=== PATIENT | female | born 1970 | race African-American/Black ===

== ENCOUNTER 2017-01-15 08:45 | Inpatient (IN) | payer MEDICAID ==
[2017-01-15] VITALS (14 sets, daily range): BP systolic 139–200; BP diastolic 64–112; PULSE 62–82; RESP 16–19; TEMP 97.8–98.5; O2SAT 96–100
[~2017-01-15] VITALS: Ht 177.8 cm; Wt 95.5 kg
[~2017-01-15 08:45] MED LIST: ACET325S8 PO
[2017-01-15] MEDS ORDERED: ADVA100A INH (09:09)
[2017-01-15] MEDS ORDERED: LISI-519 PO (09:09)
[2017-01-15] MEDS ORDERED: ASPIRIN 81 MG CHEW TAB PO ONE (09:15)
[2017-01-15] MEDS ORDERED: SODIUM CHLORIDE 0.9% FLUSH 10 ML FLUSH IVF PRN (09:15)
[2017-01-15] MEDS ORDERED: SODIUM CHLORID 0.9% 500 ML INJ 500 ML IV ONE (09:15)
--- NOTE | 2017-01-15 09:22 | PD ---
HPI Chief Complaint: Chest Pain Time Seen by Provider: 09:07 Travel History International Travel<30 days: No Contact w/Intl Traveler<30days: No Traveled to known affect area: No History of Present Illness HPI Patient is a 46-year-old female history of hypertension, presents to emergency room complaints of chest pain. Reports that she is ago, she woke up with pains or chest. Reports that she feels a squeezing sensation to her substernum. Patient reports the symptoms feel better when she sits up, reports that symptoms are worse when she lies and flat. Reports that when she does have these symptoms, she does have diaphoresis, shortness of breath. Patient reports that symptoms will last for hours and then completely resolve on its own. Reports no history of coronary artery disease, [place], coronary artery stents. Patient does not follow up with a crester. Patient denies any recent illnesses, reports that she did recently travel to [place] for vacation. Reports that she is a nonsmoker, she does exercise daily and rides about 10 miles on her bike every several day. Patient denies any drug abuse, or alcohol abuse. PFSH Past Medical History Asthma: Yes Diminished Hearing: No Hypertension: Yes ?: Not LMP: currently on it Tubal Ligation: Yes Past Surgical History Surgical History: No Previous Surgery Social History Alcohol Use: No Tobacco Use: No Substance Use: No Allergies-Medications (Allergen,Severity, Reaction): Coded Allergies: No Known Allergies (Unverified , 12/30/15) Reported Meds & Prescriptions Reported Meds & Active Scripts Active Reported Ventolin Hfa 18 GM Inh (Albuterol Sulfate) 90 Mcg/Act Aer 2 Puff INH Q4H PRN Lisinopril-Hctz 10-12.5 Mg Tab 1 Tab PO DAILY Advair Diskus Inh (Fluticasone-Salmeterol Inh) 100-50 Mcg/Blist Aer 1 Puff INH BID Rinse mouth after use. Review of Systems General / Constitutional: No: Fever Eyes: No: Visual changes HENT: No: Headaches Cardiovascular: Positive: Chest Pain or Discomfort Respiratory: Positive: Shortness of Breath Gastrointestinal: No: Abdominal Pain Genitourinary: No: Dysuria Musculoskeletal: No: Pain Skin: No Rash Neurologic: No: Weakness Psychiatric: No: Depression Endocrine: No: Polydipsia Hematologic/Lymphatic: No: Easy Bruising Physical Exam Narrative GENERAL: Mild distress SKIN: Focused skin assessment warm/dry. HEAD: Atraumatic. Normocephalic. EYES: Pupils equal and round. No scleral icterus. No injection or drainage. ENT: No nasal bleeding or discharge. Mucous membranes pink and moist. NECK: Trachea midline. No JVD. CARDIOVASCULAR: Regular rate and rhythm. No murmur appreciated. RESPIRATORY: No accessory muscle use. Clear to auscultation. Breath sounds equal bilaterally. GASTROINTESTINAL: Abdomen soft, non-tender, nondistended. Hepatic and splenic margins not palpable. MUSCULOSKELETAL: No obvious deformities. No clubbing. No cyanosis. No edema. NEUROLOGICAL: Awake and alert. No obvious cranial nerve deficits. Motor grossly within normal limits. Normal speech. PSYCHIATRIC: Appropriate mood and affect; insight and judgment normal. Data Data Last Documented VS Vital Signs Date Time Temp Pulse Resp B/P Pulse Ox O2 Delivery O2 Flow Rate FiO2 01/15/17 13:00 82 18 190/98 98 Room Air 01/15/17 08:48 98.4 Orders Electrocardiogram (01/15/17 ) Basic Metabolic Panel (Bmp) (01/15/17 09:15) B-Type Natriuretic Peptide (01/15/17 09:15) Ckmb (Isoenzyme) Profile (01/15/17 09:15) Complete Blood Count With Diff (01/15/17 09:15) D-Dimer (01/15/17 09:15) Magnesium (Mg) (01/15/17 09:15) Prothrombin Time / Inr (Pt) (01/15/17 09:15) Act Partial Throm Time (Ptt) (01/15/17 09:15) Troponin I (01/15/17 09:15) Lipase (01/15/17 09:15) Chest, Single Ap (01/15/17 09:15) Ecg Monitoring (01/15/17 09:15) Iv Access Insert/Monitor (01/15/17 09:15) Oximetry (01/15/17 09:15) Aspirin Chew (Aspirin Chew) (01/15/17 09:15) Sodium Chloride 0.9% Flush (Ns Flush) (01/15/17 09:15) Nitroglycerin Sl (Nitrostat Sl) (01/15/17 09:15) Sodium Chlorid 0.9% 500 Ml Inj (Ns 500 M (01/15/17 09:15) Ct Pulmonary Angiogram (01/15/17 10:28) CKMB (01/15/17 09:30) CKMB% (01/15/17 09:30) Vascular Access Team Consult/P PRN (01/15/17 10:32) Vascular Poc Ultrasound (01/15/17 ) Heparin Infusion SHAHRAM.Q1H (01/15/17 10:35) Heparin-D5w Inj (Heparin-D5w Inj) (01/15/17 10:45) Nitroglycerin-Dextrose Inj (Nitroglyceri (01/15/17 10:45) (Hub Use Only)Inp Phy Cons/Ref (01/15/17 ) Ckmb (Isoenzyme) Profile (01/15/17 12:21) Troponin I (01/15/17 12:21) Iohexol 350 Inj (Omnipaque 350 Inj) (01/15/17 12:48) CKMB (01/15/17 12:22) CKMB% (01/15/17 12:22) Consult Cardiology (01/15/17 ) Electrocardiogram (01/15/17 ) Labs Laboratory Tests Test 01/15/17 01/15/17 09:30 12:22 White Blood Count 4.2 TH/MM3 Red Blood Count 4.87 MIL/MM3 Hemoglobin 11.2 GM/DL Hematocrit 34.9 % Mean Corpuscular Volume 71.7 FL Mean Corpuscular Hemoglobin 23.0 PG Mean Corpuscular Hemoglobin 32.1 % Concent Red Cell Distribution Width 17.0 % Platelet Count 272 TH/MM3 Mean Platelet Volume 8.6 FL Neutrophils (%) (Auto) 52.1 % Lymphocytes (%) (Auto) 34.5 % Monocytes (%) (Auto) 8.9 % Eosinophils (%) (Auto) 3.5 % Basophils (%) (Auto) 1.0 % Neutrophils # (Auto) 2.2 TH/MM3 Lymphocytes # (Auto) 1.4 TH/MM3 Monocytes # (Auto) 0.4 TH/MM3 Eosinophils # (Auto) 0.1 TH/MM3 Basophils # (Auto) 0.0 TH/MM3 CBC Comment DIFF FINAL Differential Comment Prothrombin Time 11.4 SEC Prothromb Time International 1.0 RATIO Ratio Activated Partial 23.3 SEC Thromboplast Time D-Dimer Quantitative (PE/DVT) 1.13 MG/L FEU Sodium Level 136 MEQ/L Potassium Level 3.9 MEQ/L Chloride Level 105 MEQ/L Carbon Dioxide Level 24.5 MEQ/L Anion Gap 7 MEQ/L Blood Urea Nitrogen 4 MG/DL Creatinine 0.72 MG/DL Estimat Glomerular Filtration 106 ML/MIN Rate Random Glucose 102 MG/DL Calcium Level 8.4 MG/DL Magnesium Level 1.8 MG/DL Total Creatine Kinase 156 U/L 142 U/L Creatine Kinase MB 9.1 NG/ML 8.2 NG/ML Troponin I 5.09 NG/ML 6.02 NG/ML B-Type Natriuretic Peptide 105 PG/ML Lipase 135 U/L [facility] Medical Decision Making Medical Screen Exam Complete: Yes Emergency Medical Condition: Yes Medical Record Reviewed: Yes Interpretation(s) EKG at 912: NSR at 68bpm, qt/qtc: 435/452, nonspecific t wave changes Vital Signs Date Time Temp Pulse Resp B/P Pulse Ox O2 Delivery O2 Flow Rate FiO2 01/15/17 09:11 76 19 185/108 100 Room Air 01/15/17 08:51 75 16 194/102 01/15/17 08:48 98.4 78 18 189/112 99 Differential Diagnosis Differential includes ACS, arrhythmia, pericarditis, endocarditis, PE, electrolyte abnormality, pneumothorax Narrative Course Patient is a 46-year-old female who presents to emergency room with complaints of chest pain. She reports that chest pain has been intermittent for the past 2 days, pain is worse with laying down flat improved with sitting up. Patient reports a squeezing sensation to her mid sternum when she has her symptoms such diaphoresis and shortness of breath. She is never had these symptoms in the past. Reports Only medical history of hypertension as well as asthma. Patient was placed on a monitor technician upon arrival to the emergency room. EKG was obtained which shows no acute ST or T-wave changes. Lab work including cardiac enzymes, x-ray of the chest ordered. D-dimer ordered to rule out PE as patient is low risk for PE. Plan to administer sublingual nitroglycerin to see if this helps with her chest pain. Patient with near relief of chest pain after 3 SL nitro's - plan to start on nitro gtt trop 5.09 - will start heparin drip - will require admission for unstable angina CTA with no PE Will admit for unstable angina, patient with relief of chest pain with nitro gtt case reviewed with dr. chan, will see patient in consult case reviewed with dr. fry who accepts pt to service Critical Care Narrative Aggregate critical care time was 30 minutes. Time to perform other separately billable procedures was not included in the critical care time. My time did not include minutes spent treating any other patients simultaneously or on activities that did not directly contribute to the patient's treatment. The services I provided to this patient were to treat and/or prevent clinically significant deterioration that could result in: , decompensation, deterioration I provided critical care services requiring my management, as noted below: Chart data review, documentation time, medication orders and management, vital sign assessments/reviewing monitor data, ordering and reviewing lab tests, ordering and interpreting/reviewing x-rays and diagnostic studies, care of the patient and discussion of the patient with the admitting physicians. Diagnosis Primary Impression: Unstable angina Additional Impression: Non-ST elevation [place] (NSTEMI) Admitting Information Admitting Physician Requests: Paige Rea DO Jan 15, 2017 09:22
[2017-01-15] MEDS: NITROGLYCERIN 0.4 MG SL 25 TABS/BTL SL SCH ×3 (09:28→09:47)
--- NOTE | 2017-01-15 09:57 | RADRPT ---
EXAM DATE/TIME: 01/15/2017 09:17 [facility] COMPARISON: No previous studies available for comparison. INDICATIONS : Congestion and shortness of breath. MEDICAL HISTORY : Hypertension. Asthma SURGICAL HISTORY : None. ENCOUNTER: Initial ACUITY: 1 day PAIN SCORE: 0/10 LOCATION: Bilateral chest FINDINGS: A single view of the chest demonstrates the lungs to be symmetrically aerated without evidence of mas s, infiltrate or effusion. The cardiomediastinal contours are unremarkable. Osseous structures are intact with mild scoliosis. There are multiple overlying electrocardiogram leads. CONCLUSION: No acute disease. Chacorta Patel MD on January 15, 2017 at 9:55 Board Certified Radiologist. This report was verified electronically.
[2017-01-15 10:05] LABS: AUTOMATED NEUTROPHIL # 2.2 TH/MM3 (1.8-7.7); EOSINOPHIL # 0.1 TH/MM3 (0-0.4); EOSINOPHIL % 3.5 % (0.0-4.0); HEMATOCRIT 34.9 % (35.0-46.0); HEMO FLAGS DIFF FINAL; LYMPH % 34.5 % (9.0-44.0); LYMPHOCYTE # 1.4 TH/MM3 (1.0-4.8); MEAN CELL VOLUME 71.7 FL (80.0-100.0); MEAN CORPUSCULAR HGB CONC 32.1 % (32.0-36.0); MONO % 8.9 % (0.0-8.0); NEUT % 52.1 % (16.0-70.0); PLATELET COUNT 272 TH/MM3 (150-450); RED BLOOD COUNT 4.87 MIL/MM3 (4.00-5.30); WHITE BLOOD COUNT 4.2 TH/MM3 (4.0-11.0)
[2017-01-15 10:21] LABS: APTT (PATIENT) 23.3 SEC (24.3-30.1); PROTHROMBIN TIME - PATIENT 11.4 SEC (9.8-11.6)
[2017-01-15 10:29] LABS: ANION GAP 7 MEQ/L (5-15); BICARBONATE 24.5 MEQ/L (21.0-32.0); BLOOD UREA NITROGEN 4 MG/DL (7-18); CHLORIDE 105 MEQ/L (98-107); CREATINE KINASE 156 U/L (26-192); GLOMERULAR FILTRATION RATE 106 ML/MIN (>89); MAGNESIUM 1.8 MG/DL (1.5-2.5); POTASSIUM 3.9 MEQ/L (3.5-5.1); SODIUM (NA) 136 MEQ/L (136-145)
[2017-01-15 10:44] LABS: CKMB 9.1 NG/ML (0.5-3.6)
[2017-01-15] MEDS ORDERED: HEPARIN-D5W 25,000 U/250 ML 250 ML IV SCH (10:45)
[2017-01-15] MEDS ORDERED: NITROGLYCERIN-D5W 50 MG/250 ML 250 ML IV SCH (10:45)
[2017-01-15] MEDS ORDERED: VENTAER INH (11:00)
[2017-01-15] MEDS ORDERED: LISI10TA PO (11:00)
[2017-01-15] MEDS ORDERED: IOHEXOL 350 MG/ML 10 ML VIAL (for RAD DIAG) IV ONE (12:48)
--- NOTE | 2017-01-15 13:23 | RADRPT ---
EXAM DATE/TIME: 01/15/2017 12:45 [facility] COMPARISON: No previous studies available for comparison. INDICATIONS : Shortness of breath, chest pain and bilateral foot numbness for three days. IV CONTRAST: 60 cc Omnipaque 350 (iohexol) IV RADIATION DOSE: 23.14 CTDIvol (mGy) MEDICAL HISTORY : Hypertension. SURGICAL HISTORY : Tubal ligation. ENCOUNTER: Initial ACUITY: 3 days PAIN SCALE: 0/10 LOCATION: Bilateral chest TECHNIQUE: Volumetric scanning of the chest was performed using a pulmonary embolism protocol MIP images were re constructed. Using automated exposure control and adjustment of the mA and/or kV according to patien t size, radiation dose was kept as low as reasonably achievable to obtain optimal diagnostic quality images. DICOM format image data is available electronically for review and comparison. Follow-up recommendations for detected pulmonary nodules are based at a minimum on nodule size and pa tient risk factors according to Fleischner Society Guidelines. FINDINGS: There is no evidence of pulmonary embolism. The heart is enlarged. No pulmonary nodule or mass is noted. No alveolar or interstitial infiltrate is noted. No pleural effusion is n oted. A tiny pericardial effusion is noted. Bilateral axillary lymphadenopathy is noted and is nonspecific. Deg enerative changes and scoliosis of the thoracic spine are noted. There is a 1.5 cm low density lesion within the left lobe of the liver which is indeterminate. MRI of the abdomen with contrast may be helpful for further evalu ation of this finding if clinically indicated. CONCLUSION: 1. No evidence of pulmonary embolism. 2. Cardiomegaly. 3. Tiny pericardial effusion. 4. Bilateral axillary lymphadenopathy which is nonspecific. 5. 15 mm low density lesion within the left lobe of the liver which is indeterminate. MRI of the abd omen with contrast may be helpful for further evaluation of this finding and could be performed as an outpatient if clinically indicated. Rasta Staley MD on January 15, 2017 at 12:59 Board Certified Radiologist. This report was verified electronically.
[2017-01-15 13:26] LABS: CREATINE KINASE 142 U/L (26-192)
[2017-01-15 13:41] LABS: CKMB 8.2 NG/ML (0.5-3.6)
--- NOTE | 2017-01-15 14:08 | HHI.HP ---
[facility] Service [place] [facility] Primary Care Physician Emmanuel Luong Admission Diagnosis Unstable Angina Diagnoses: (1) Non-ST elevation [place] (NSTEMI) Diagnosis: Principal Chief Complaint: chest pain Travel History International Travel<30 Days: No Contact w/Intl Traveler <30 Da: No Traveled to Known Affected Are: No History of Present Illness patient is a 46 y/o female with history of hypertension who presented to ER with chest pain. she says that she rides her bicycle a few mild a day. she says that she started to have some sob a few days ago when she was riding her bicycle.she says that last night when she went to sleep she started to have midsternal pressure-type chest discomfort with some radiation to both arms. pain last till this morning. pain was associated with some sob but with no nausea,emesis. she had some diaphoresis last night. the pain was relieved after she was placed on Nitro drip. she doesn't recall any chest pain in the past. Review of Systems Constitutional: COMPLAINS OF: Diaphoretic episodes, DENIES: Fever, Weight loss , Chills, Night Sweats Eyes: DENIES: Blurred vision, Diplopia, Vision loss, Double Vision Ears, nose, mouth, throat: DENIES: Tinnitus, Vertigo, Throat pain, Epistaxis Respiratory: COMPLAINS OF: Shortness of breath, DENIES: Apneas, Cough, Snoring , Wheezing, Hemoptysis, Sputum production Cardiovascular: COMPLAINS OF: Chest pain, Dyspnea on Exertion, DENIES: Palpitations, Syncope, PND, Lower Extremity Edema, Orthopnea, Claudication Gastrointestinal: DENIES: Abdominal pain, Black stools, Bloody stools, Constipation, Diarrhea, Nausea, Vomiting, Difficulty Swallowing, Anorexia Genitourinary: DENIES: Urinary frequency, Urgency, Hematuria, Dysuria Musculoskeletal: DENIES: Joint pain, Muscle aches, Stiffness, Joint Swelling Integumentary: DENIES: Rash Neurologic: DENIES: Abnormal gait, Headache, Localized weakness, Paresthesias, Seizures, Speech Problems, Tremor, Poor Balance Psychiatric: DENIES: Anxiety, Confusion, Mood changes, Depression, Hallucinations, Agitation, Suicidal Ideation, Homicidal Ideation, Delusions Past Family Social History Past Medical History hypertension asthma Past Surgical History tubal ligation. Reported Medications Ventolin Hfa 18 GM Inh (Albuterol Sulfate) 90 Mcg/Act Aer 2 Puff INH Q4H PRN Lisinopril-Hctz 10-12.5 Mg Tab 1 Tab PO DAILY Advair Diskus Inh (Fluticasone-Salmeterol Inh) 100-50 Mcg/Blist Aer 1 Puff INH BID Rinse mouth after use. Allergies: Coded Allergies: No Known Allergies (Unverified , 12/30/15) Active Ordered Medications Current Medications Aspirin (Aspirin Chew) 162 mg ONCE ONCE PO Last administered on 01/15/17 09: 27; Start 01/15/17 at 09:15; Stop 01/15/17 at 09:17; Status DC Sodium Chloride (NS Flush) 2 ml UNSCH PRN IVF FLUSH AFTER USING IV ACCESS; Start 01/15/17 at 09:15 Nitroglycerin 0.4 mg 0.4 mg Q5M SL Last administered on 01/15/17 09:47; Start 01/15/17 at 09:15; Stop 01/15/17 at 09:26; Status DC Sodium Chloride 500 ml @ 500 mls/hr ONCE ONCE IV Last administered on 09:29; Start 01/15/17 at 09:15; Stop 01/15/17 at 10:14; Status DC Heparin Sodium/ Dextrose 250 ml @ 0 mls/hr TITRATE IV Last administered on 01/15 10:58; Start 01/15/17 at 10:45 Nitroglycerin/ Dextrose (Nitroglycerin-Dextrose Inj) 250 ml @ 0 mls/hr TITRATE IV Last administered on 01/15/17 10:57; Start 01/15/17 at 10:45 Iohexol (Omnipaque 350 Inj) 60 ml STK-MED ONCE IV Last administered on 12:48; Start 01/15/17 at 12:48; Stop 01/15/17 at 12:49; Status DC Family History not known. Social History no smoking, drinking or illicit drug abuse. Physical Exam Vital Signs Vital Signs Date Time Temp Pulse Resp B/P Pulse Ox O2 Delivery O2 Flow Rate FiO2 01/15/17 13:00 82 18 190/98 98 Room Air 01/15/17 12:00 80 17 200/95 99 Room Air 01/15/17 11:00 77 18 196/105 100 Room Air 01/15/17 10:01 14 01/15/17 10:00 75 17 187/107 100 Room Air 01/15/17 09:34 82 19 168/100 99 Room Air 01/15/17 09:29 100 Room Air 01/15/17 09:11 76 19 185/108 100 Room Air 01/15/17 08:51 75 16 194/102 01/15/17 08:48 98.4 78 18 189/112 99 Physical Exam GENERAL: This is a well-nourished, well-developed patient, in no apparent distress. SKIN: No rashes, ecchymoses or lesions. Cool and dry. HEAD: Atraumatic. Normocephalic. No temporal or scalp tenderness. EYES: Pupils equal round and reactive. Extraocular motions intact. No scleral icterus. No injection or drainage. ENT: Nose without bleeding, purulent drainage or septal hematoma. Throat without erythema, tonsillar hypertrophy or exudate. Uvula midline. Airway patent. NECK: Trachea midline. No JVD or lymphadenopathy. Supple, nontender, no meningeal signs. CARDIOVASCULAR: Regular rate and rhythm without murmurs, gallops, or rubs. RESPIRATORY: Clear to auscultation. Breath sounds equal bilaterally. No wheezes , rales, or rhonchi. GASTROINTESTINAL: Abdomen soft, non-tender, nondistended. No hepato-splenomegaly , or palpable masses. No guarding. MUSCULOSKELETAL: Extremities without clubbing, cyanosis, or edema. No joint tenderness, effusion, or edema noted. No calf tenderness. Negative Homans sign bilaterally. NEUROLOGICAL: Awake and alert. Cranial nerves II through XII intact. Motor and sensory grossly within normal limits. Five out of 5 muscle strength in all muscle groups. Normal speech. Laboratory Laboratory Tests Test 01/15/17 01/15/17 09:30 12:22 White Blood Count 4.2 Red Blood Count 4.87 Hemoglobin 11.2 Hematocrit 34.9 Mean Corpuscular Volume 71.7 Mean Corpuscular Hemoglobin 23.0 Mean Corpuscular Hemoglobin 32.1 Concent Red Cell Distribution Width 17.0 Platelet Count 272 Mean Platelet Volume 8.6 Neutrophils (%) (Auto) 52.1 Lymphocytes (%) (Auto) 34.5 Monocytes (%) (Auto) 8.9 Eosinophils (%) (Auto) 3.5 Basophils (%) (Auto) 1.0 Neutrophils # (Auto) 2.2 Lymphocytes # (Auto) 1.4 Monocytes # (Auto) 0.4 Eosinophils # (Auto) 0.1 Basophils # (Auto) 0.0 CBC Comment DIFF FINAL Differential Comment Prothrombin Time 11.4 Prothromb Time International 1.0 Ratio Activated Partial 23.3 Thromboplast Time D-Dimer Quantitative (PE/DVT) 1.13 Sodium Level 136 Potassium Level 3.9 Chloride Level 105 Carbon Dioxide Level 24.5 Anion Gap 7 Blood Urea Nitrogen 4 Creatinine 0.72 Estimat Glomerular Filtration 106 Rate Random Glucose 102 Calcium Level 8.4 Magnesium Level 1.8 Total Creatine Kinase 156 142 Creatine Kinase MB 9.1 8.2 Troponin I 5.09 6.02 B-Type Natriuretic Peptide 105 Lipase 135 Result Diagram: 01/15/1792901/15/17929 Imaging Last Impressions Chest X-Ray 01/15/17914 Signed Impressions: Service Date/Time: December 09:17 - CONCLUSION: No acute disease. Chacorta Patel MD EKG; sinus rhythm with no acute ST-T changes. Assessment and Plan Assessment and Plan A/P - NSTEMI received a dose of aspirin in ER- continue with Heparin and Nitro drip- continue to trend the cardiac enzymes- cardiology consulted. -hypertensive urgency; started on Nitro drip- will monitor the BP. -asthma with no exacerbation; resume advair and albuterol -liver lesion- f/u as outpatient. -DVT prophylaxis; on Heparin drip Discussed Condition With ER physician and the patient. Physician Certification 2 Midnight Certification Type: Admission for Inpatient Services Order for Inpatient Services The services are ordered in accordance with Medicare regulations or non- Medicare payer requirements, as applicable. In the case of services not specified as inpatient-only, they are appropriately provided as inpatient services in accordance with the 2-midnight benchmark. Estimated LOS (days): 2 days is the estimated time the patient will need to remain in the hospital, assuming treatment plan goals are met and no additional complications. Post-Hospital Plan: Home Deirdre Vivar MD Jan 15, 2017 14:08
--- NOTE | 2017-01-15 14:53 | PD.CONS ---
HPI Consult Requested By Primary Care Physician Emmanuel Luong History of Present Illness 46 y/o female with history of hypertension who presented to ER with chest pain. she says that she rides her bicycle a few mild a day. she says that she started to have some sob a few days ago when she was riding her bicycle.she says that last night when she went to sleep she started to have midsternal pressure-type chest discomfort with some radiation to both arms. pain last till this morning. pain was associated with some sob but with no nausea,emesis. she had some diaphoresis last night. the pain was relieved after she was placed on Nitro drip. she doesn't recall any chest pain in the past. Review of Systems Consitutional: DENIES: Fatigue, Fever, Chills, Weight gain, Weight loss Eyes: DENIES: Amaurosis Fugax, Change in vision HEENT: DENIES: Lightheadedness, Change in hearing Respiratory: DENIES: See HPI, Cough, Snoring, Shortness of breath, Wheezing, Sputum production Cardiovascular: COMPLAINS OF: See HPI Gastrointestinal: DENIES: Nausea, Vomiting, Change in bowel habits, Reflux, Bloody stools, Melena Genitourinary: DENIES: Urinary incontinence, Difficulty voiding Integumentary: DENIES: Rash Neurologic: DENIES: Tingling or numbness, Memory problems, Poor Balance, Stroke symptoms Musculoskeletal: DENIES: Joint pain, Muscle pain, Limited range of motion, Back pain Psychiatric: DENIES: Anxiety, Depression, Sleep disturbances Hematologic: DENIES: Bruising tendencies, Bleeding tendencies Endocrine: DENIES: Weight gain, Weight loss, Thyroid disease Past Family Social History Allergies: Coded Allergies: No Known Allergies (Unverified , 12/30/15) Past Medical History hypertension asthma Past Surgical History tubal ligation. Reported Medications Reported Meds & Active Scripts Active Reported Ventolin Hfa 18 GM Inh (Albuterol Sulfate) 90 Mcg/Act Aer 2 Puff INH Q4H PRN Lisinopril-Hctz 10-12.5 Mg Tab 1 Tab PO DAILY Advair Diskus Inh (Fluticasone-Salmeterol Inh) 100-50 Mcg/Blist Aer 1 Puff INH BID Rinse mouth after use. Active Ordered Medications Current Medications Medications (Trade) Dose Ordered Sig/Mulu Route Start Time Stop Time Status Last Admin Sodium Chloride 2 ml 2 ml UNSCH PRN IVF 01/15/17 09:15 Heparin Sodium/ Dextrose 250 ml @ 0 mls/hr TITRATE IV 01/15/17 10:45 01/15/17 10:58 (Nitroglycerin-Dextrose Inj) 250 ml @ 0 mls/hr TITRATE IV 01/15/17 10:45 01/15/17 10:57 (Proair Hfa Inh) 2 puff Q4H PRN INH 01/15/17 14:00 UNV Non-Formulary Medication 1 puff 1 puff BID INH 01/15/17 21:00 UNV (NS 1000 ml Inj) 1,000 ml @ 84 mls/hr [id number] IV 01/15/17 14:00 UNV Physical Exam Vital Signs Vital Signs Date Time Temp Pulse Resp B/P Pulse Ox O2 Delivery O2 Flow Rate FiO2 01/15/17 13:00 82 18 190/98 98 Room Air 01/15/17 12:00 80 17 200/95 99 Room Air 01/15/17 11:00 77 18 196/105 100 Room Air 01/15/17 10:01 14 01/15/17 10:00 75 17 187/107 100 Room Air 01/15/17 09:34 82 19 168/100 99 Room Air 01/15/17 09:29 100 Room Air 01/15/17 09:11 76 19 185/108 100 Room Air 01/15/17 08:51 75 16 194/102 01/15/17 08:48 98.4 78 18 189/112 99 Physical Exam GENERAL: Well-nourished, well-developed patient. SKIN: Warm and dry. HEAD: Normocephalic. EYES: No scleral icterus. No injection or drainage. NECK: Supple, trachea midline. No JVD or lymphadenopathy. CARDIOVASCULAR: Regular rate and rhythm without murmurs, gallops, or rubs. RESPIRATORY: Breath sounds equal bilaterally. No accessory muscle use. GASTROINTESTINAL: Abdomen soft, non-tender, nondistended. EXTREMITIES: No cyanosis, or edema. NEUROLOGICAL: Awake, alert, and oriented x 3. Non-focal. Laboratory Laboratory Tests Test 01/15/17 01/15/17 09:30 12:22 White Blood Count 4.2 Red Blood Count 4.87 Hemoglobin 11.2 Hematocrit 34.9 Mean Corpuscular Volume 71.7 Mean Corpuscular Hemoglobin 23.0 Mean Corpuscular Hemoglobin 32.1 Concent Red Cell Distribution Width 17.0 Platelet Count 272 Mean Platelet Volume 8.6 Neutrophils (%) (Auto) 52.1 Lymphocytes (%) (Auto) 34.5 Monocytes (%) (Auto) 8.9 Eosinophils (%) (Auto) 3.5 Basophils (%) (Auto) 1.0 Neutrophils # (Auto) 2.2 Lymphocytes # (Auto) 1.4 Monocytes # (Auto) 0.4 Eosinophils # (Auto) 0.1 Basophils # (Auto) 0.0 CBC Comment DIFF FINAL Differential Comment Prothrombin Time 11.4 Prothromb Time International 1.0 Ratio Activated Partial 23.3 Thromboplast Time D-Dimer Quantitative (PE/DVT) 1.13 Sodium Level 136 Potassium Level 3.9 Chloride Level 105 Carbon Dioxide Level 24.5 Anion Gap 7 Blood Urea Nitrogen 4 Creatinine 0.72 Estimat Glomerular Filtration 106 Rate Random Glucose 102 Calcium Level 8.4 Magnesium Level 1.8 Total Creatine Kinase 156 142 Creatine Kinase MB 9.1 8.2 Troponin I 5.09 6.02 B-Type Natriuretic Peptide 105 Lipase 135 Result Diagram: 01/15/17 0930 01/15/17 [address] Angiography 01/15/17 1028 Signed Impressions: Service Date/Time: December 12:45 - CONCLUSION: 1. No evidence of pulmonary embolism. 2. Cardiomegaly. 3. Tiny pericardial effusion. 4. Bilateral axillary lymphadenopathy which is nonspecific. 5. 15 mm low density lesion within the left lobe of the liver which is indeterminate. MRI of the abdomen with contrast may be helpful for further evaluation of this finding and could be performed as an outpatient if clinically indicated. Rasta Staley MD Chest X-Ray 01/15/17 0915 Signed Impressions: Service Date/Time: December 09:17 - CONCLUSION: No acute disease. Chacorta Patel MD Assessment and Plan Problem List: (1) Non-ST elevation NH (NSTEMI) Assessment and Plan: 46 y/o F with presents with chest pain and + cardiac markers consistent with NSTEMI. Cardiac risk factors with HTN. Afebrile and hemodynamically stable. Recommendations: [facility] today Heparin drip BB ACEi Nitrates 2Dechocardiogram Risk benefits of LHC possible PCI has including but not limited to neurovascular trauma, infection, bleeding, acute kidney injury, CVA, emergent CABG have been explain to the patient. Patient understands risk and is willing to proceed. (2) Unstable angina Vasiliy Charles MD Jan 15, 2017 14:53
[2017-01-15] MEDS ORDERED: ALBUTEROL SULFATE 90 MCG/ACT HFA 18 GM INHALER INH PRN (15:15)
[2017-01-15] MEDS ORDERED: HEPARIN-NS/PF INJ 500 ML ONE (15:26)
[2017-01-15] MEDS ORDERED: MIDAZOLAM HCL 2 MG/2 ML VIAL ONE ×2 (15:26→16:02)
[2017-01-15 15:27] LABS: BETA HCG QUANT LESS THAN 1 MIU/ML (0-5)
[2017-01-15] MEDS ORDERED: LABETALOL HCL 100 MG/20 ML VIAL ONE (15:56)
[2017-01-15] MEDS ORDERED: IOHEXOL 350 MG/ML 50 ML BTL (for Cath Lab) OTHER ONE (16:13)
--- NOTE | 2017-01-15 16:41 | EKG ---
Date Performed: 01/15/2017 Time Performed: 09:13:48 PTAGE: 46 years EKG: Sinus rhythm POSSIBLE LEFT ATRIAL ENLARGEMENT POSSIBLE LEFT VENTRICULAR HYPERTROPHY NONSPECIFIC T-WAVE ABNORMALIT Y ABNORMAL ECG NO PREVIOUS TRACING DOCTOR: Ariel Garcia Interpretating Date/Time 01/15/2017 16:40:49
[2017-01-15] MEDS ORDERED: PROTAMINE SULFATE 50 MG/5 ML VIAL ONE (16:48)
--- NOTE | 2017-01-15 17:04 | CATHPROC ---
USDS HIS Report Study Information Study Number Admission Scheduled Start Study Start [id number] Jan 15 2017 1:47PM 01/15/2017 Jan 15 2017 3:23PM [facility] Service Cardiac Catheterization Admit Source Facility Department Emergency department [facility] - Critical Care Educator Physician and Clinical Staff Initial Vasiliy Blanton RN, Genesis Martinez RN Recorder Gino Sosa,RT(R) Scrub Xi Sands,RT(R) Procedures Performed Procedure Location (Site) Vessel Name Coronary Angiograms LCA Left Coronary Coronary Angiograms RCA Right Coronary L Heart Cath LV Gram-hand inj. LV LV Ventricle Equipment Time Supply Chain Procurement Manager Description Size Mfg Part Number Used/Scraped TRANSDUCER, TRUWAVE [id number] 15:44 [employer]OWN NICHOLS * Used W/STOCKCOCK *[id number] 16:14 [employer] VASCADE, FR5 CLOSURE SYSTEM FR 5 Used *[id number]- INTRODUCER SET, 15:44 [employer] FR 5 SC-NT-U-SST Used MICROPUNCTURE, STIFFENED *[id number] *[id number] [id number] *[id number] 15:44 [employer] INDUSTRIES PACK, CCL CUSTOM * Used *[id number] 15:44 [employer] WIRE, 3MMJ .035 180CM 180CM Used *[id number] 15:44 NAMIC MANIFOLD, 4 PORT * Used *[id number] 15:44 [employer] OMNIPAQUE, 350 MG, 150ML 150ML [id number] Used [id number] 15:44 [employer] BLANKET,WARM AIR CCL * Used *[id number] 15:44 TERUMO MEDICAL SHEATH, FR5 TERUMO (10CM) FR 5 Used *[id number] History: Allergies Allergy Reaction No Known Allergies History: Risk Factors Family History of Hypertension Dyslipidemia Previous PR Previous Heart Failure Premature CAD Yes No No No No Prior Valve Prior PCI Prior CABG Surgery No No No Cerebrovascular Peripheral Artery Chronic Lung On Dialysis Diabetes Disease Disease Disease No No No Yes No History: Stress Tests Stress or Imaging Studies Performed No History: Other Disease Selection Items HTN History: Other Current Smoker No Labs Hgb (g/dl) Hct (%) RBC (MIL/MM3) WBC (l/cumm) Platelets (thousands) 11.60-17.00 35.00-51.00 4.00-5.90 4.00-11.00 150.00-450.00 11.2 34.9 4.8 4.2 272 Glucose (mg/dl) BUN (mg/dl) Creatinine (mg/dl) BUN:Creatinine (1:x) 74.00-106.00 7.00-18.00 0.50-1.30 10.00-20.00 102 4 0.7 5.7 Na (meq/l) K (meq/l) Cl (meq/l) CO2 (mmol/L) Ca (mg/dl) 136.00-145.00 3.50-5.10 98.00-107.00 21.00-32.00 8.50-10.10 136 3.9 105 24.5 8.4 PT (sec) PTT (sec) INR (PTT:PT) 9.80-11.60 24.30-30.10 0.90-1.10 11.4 23.3 1 Troponin I (ng/ml) Troponin T (ng/ml) CPK-MB (ng/ML) 0.02-0.05 0.40-2.10 0.50-3.60 6.02 5.09 9.1 Medication Medication Total Dose (Bolus/Oral) Medication Total Dosage/Unit 1% XYLOCAINE 20 mL FENTANYL 100 mcg LABETOLOL 20 mg VERSED 4 mg Medications (Bolus/Oral) Medication Time Given Dosage/Unit Administered By Reason VERSED 01/15/2017 3:56:36 PM 2 mg Rickey Tinsley RN Patient arrived on 2 mg VERSED given by Rickey Tinsley RN in Left Antecubital via Peripheral IV. Ordere d by Vasiliy Charles. LABETOLOL 01/15/2017 3:57:52 PM 20 mg Rickey Tinsley RN Patient arrived on 20 mg LABETOLOL given by Rickey Tinsley RN in Left Antecubital via Peripheral IV. Or dered by Vasiliy Charles. FENTANYL 01/15/2017 3:59:45 PM 50 mcg Rickey Tinsley RN Patient arrived on 50 mcg FENTANYL given by Rickey Tinsley RN in Left Antecubital via Peripheral IV. Or dered by Vasiliy Charles. FENTANYL 01/15/2017 4:02:43 PM 50 mcg Rickey Tinsley RN 50 mcg FENTANYL given in lab by Rickey Tinsley RN via Peripheral IV. 1% XYLOCAINE 01/15/2017 4:03:24 PM 20 mL Vasiliy Charles 20 mL 1% XYLOCAINE given in lab by Vasiliy Charles in Right Groin via Subcutaneous. VERSED 01/15/2017 4:05:01 PM 2 mg Rickey Tinsley RN 2 mg VERSED given in lab by Rickey Tinsley RN via Peripheral IV. Medication (Drip) Medication Time Given Dosage/Unit Concentration/Unit Diluent (ml) Solution NITROGLYCERIN DRIP 01/15/2017 3:29:18 PM 20 mcg/min 50 mg 250 D5W Patient arrived on 20 mcg/min NITROGLYCERIN DRIP given by Vasiliy Charles in Left Forearm via Perip heral IV. Pump/Drip Flow = 6 ml/hr using D5W with a concentration of 50 mg in 250 ml. Ordered by Vasiliy Charles. NITROGLYCERIN DRIP 01/15/2017 3:50:28 PM 30 mcg/min 50 mg 250 D5W Patient arrived on 30 mcg/min NITROGLYCERIN DRIP given by Rickey Tinsley RN in Left Antecubital via Per ipheral IV. Pump/Drip Flow = 9 ml/hr using D5W with a concentration of 50 mg in 250 ml. Ordered by Vasiliy Charles. Initial Case Assessment Cardiovascular HR Rhythm NIBP Chest Pain 70 sr 202/120 0 Edema Present Skin color Skin None Normal Warm Dry Circulatory - Right Pulses Dorsalis Pedis Femoral 3 3 Scale (0,1,2,3,4,d) Circulatory - Left Pulses Dorsalis Pedis Femoral 3 3 Scale (0,1,2,3,4,d) Neurological State Oriented to time-place- Alert Moves all extremities person Respiration - General Respiration Rate SpO2 (%) O2 (lpm) (B/min) 18 98 0 Final Case Assessment Cardiovascular HR Rhythm NIBP Chest Pain 76 Sinus 158/95 0 Edema Present Skin color Skin None Normal Warm Dry Circulatory - Right Pulses Dorsalis Pedis Femoral 3 3 Scale (0,1,2,3,4,d) Circulatory - Left Pulses Dorsalis Pedis Femoral 3 3 Scale (0,1,2,3,4,d) Neurological State Oriented to time-place- Alert Moves all extremities person Respiration - General Respiration Rate SpO2 (%) O2 (lpm) (B/min) 13 97 2 Chronological Log Time Study Chronological Log 15:23:57 Patient arrived via Bed. 15:23:59 Patient Name, D.O.B, / Armband Verified By R.N. 15:24:49 Pre-op and post- op instructions given; patient acknowledges understanding of instructions. 15:25:14 Verbal Stimulation=2 Physical Stimulation=2 Airway=2 Respiration=2 TOTAL=8. (0=absent, 1=li mited, 2=present) Vitals capture started with the following parameters, Patient=Adult, Interval=5 min, Initial Pr ozoaze=068 mmHg, 15:25:16 Deflation Rate=5 mmHg, Cuff placed on Right Arm 15:25:37 Presedation assessment performed by Critical Care Educator RN. 15:26:43 CEEO=016/120 mmhg, SpO2=98.0 %, Geiger=2 15:27:27 Reference ECG taken 15:28:19 Skin Breakdown-none present per patient. 15:28:50 A # 20 IV was noted in the Forearm (left). Grade = 0 15:29:01 A # 20 IV was noted in the Forearm (right). Grade = 0 15:29:09 A # 20 IV was noted in the Wrist (left). Grade = 0 Patient arrived on 20 mcg/min NITROGLYCERIN DRIP given by Vasiliy Charles in Left Forearm via Peripheral IV. 15:29:18 Pump/Drip Flow = 6 ml/hr using D5W with a concentration of 50 mg in 250 ml. Ordered by Vasiliy Harris. 15:30:03 History and physical on the chart or being dictated. Assessment: Initial Case, HR=70 BPM, Rhythm=sr, PPJC=659/120 mmhg, Chest Pain=0, Edema=None, Co efra=Normal, Skin = Warm, Dry Right Pulses: Jaydon Ped=3, Femoral=3 15:30:05 Left Pulses: Jaydon Ped=3, Femoral=3 Neurological: State=Alert, Ox3, PURCELL Respiration: Resp=18 B/min, SpO2=98 %, O2=0 lpm 15:30:49 Bilateral groins prepped with 2% chlorhexidine, and with a 3 min. waiting time. 15:31:07 HR=71 bpm, AMXJ=237/117 mmhg, SpO2=98.0 %, Resp=15 B/min, Geiger=2 15:36:08 NZ=274 bpm, ESDJ=985/133 mmhg, SpO2=98.0 %, Resp=15 B/min, Geiger=2 15:40:02 Pressure channel 1 zeroed. 15:41:09 HR=80 bpm, WQPI=917/117 mmhg, SpO2=97.0 %, Resp=24 B/min, Geiger=2 15:46:04 MD paged 15:46:08 HR=73 bpm, QVPA=046/113 mmhg, BbA1=321.0 %, Resp=20 B/min, Geiger=2 Patient arrived on 30 mcg/min NITROGLYCERIN DRIP given by Rickey Tinsley RN in Left Antecubital v ia Peripheral IV. 15:50:28 Pump/Drip Flow = 9 ml/hr using D5W with a concentration of 50 mg in 250 ml. Ordered by Vasiliy Harris. 15:51:07 HR=73 bpm, EUAD=750/120 mmhg, SxA4=265.0 %, Resp=12 B/min, Geiger=2 15:56:08 HR=77 bpm, AFUP=866/117 mmhg, ZjG1=049.0 %, Resp=14 B/min, Geiger=2 Patient arrived on 2 mg VERSED given by Rickey Tinsley RN in Left Antecubital via Peripheral IV. Ordered by Araceli, 15:56:36 Vasiliy. Patient arrived on 20 mg LABETOLOL given by Rickey Tinsley RN in Left Antecubital via Peripheral IV. Ordered by Yin 15:57:52 Vasiliy Stokes. Patient arrived on 50 mcg FENTANYL given by Rickey Tinsley RN in Left Antecubital via Peripheral IV. Ordered by Yin 15:59:45 Vasiliy Stokes. 16:01:09 HR=78 bpm, XZFD=130/109 mmhg, HkJ3=066.0 %, Resp=15 B/min, Pain=0, Yolanda=10, Geiger=2 16:01:50 MD arrived. 16:02:43 50 mcg FENTANYL given in lab by Rickey Tinsley RN via Peripheral IV. Time Out. Correct patient, correct procedure,correct physician, power injector not loaded with contrast with surgical 16::49 team present. Time Out Concurred by , individual staff in procedure 16:03:18 Case Start 16:03:24 20 mL 1% XYLOCAINE given in lab by Vasiliy Charles in Right Groin via Subcutaneous. 16:05:01 2 mg VERSED given in lab by Rickey Tinsley RN via Peripheral IV. 16::49 Access site was Right Femoral Artery. 16:05:53 A SHEATH, FR5 TERUMO (10CM) FR 5 was advanced into the Fem Art (right) using the Percutaneo us technique. 16:06:02 An injection in the Fem Art (right) was made through the SHEATH, FR5 TERUMO (10CM) FR 5. 16:06:04 HR=71 bpm, SMZR=020/105 mmhg, SpO2=94.0 %, Resp=6 B/min, Pain=0, Yolanda=10, Geiger=2 A JR 4.0 INFINITI CATHETER FR 5 was advanced over a wire. OMNIPAQUE, 350 MG, 150ML 150ML was us ed for 16:06:12 injections. Recorded Pressure: LV, HR=71, Condition=Condition 1 16:07:54 (Left Ventricle) LV 161/8/12 16:08:05 The LV was manually injected with 8 cc's and visualized. OMNIPAQUE, 350 MG, 150ML 150ML use d. Recorded Pressure: LV, Ao, HR=70, Condition=Condition 1 16:08:21 (Left Ventricle) LV 159/10/11, (Aorta) Ao 152/92/118 16:08:51 The RCA was injected and visualized at various angles. OMNIPAQUE, 350 MG, 150ML 150ML used . After removing the current catheter a JL 4.0 INFINITI CATHETER FR 5 was advanced over a WIRE, 3 MMJ .035 180CM 16:09:18 180CM. Recorded Pressure: Ao, HR=75, Condition=Condition 1 16:10:57 (Aorta) Ao 147/94/118 16:11:01 HR=80 bpm, ESTN=146/95 mmhg, SpO2=98.0 %, Resp=4 B/min, Pain=0, Yolanda=10, Geiger=2 16:11:10 The LCA was injected and visualized at various angles. OMNIPAQUE, 350 MG, 150ML 150ML used . 16:11:37 Catheter was removed 16:13:14 VASCADE, FR5 CLOSURE SYSTEM FR 5 placement in the Fem Art (right) 16:13:55 Case End 16:14:04 No case complications noted. 16:14:05 Cine recording checked. 16:14:34 Bedside Report will be given. 16:14:40 A Left Heart Cath was performed. Assessment: Final Case, HR=76 BPM, Rhythm=Sinus, IBOY=497/95 mmhg, Chest Pain=0, Edema=None, Color=Normal, Skin = Warm, Dry Right Pulses: Jaydon Ped=3, Femoral=3 16:14:47 Left Pulses: Jaydon Ped=3, Femoral=3 Neurological: State=Alert, Ox3, PURCELL Respiration: Resp=13 B/min, SpO2=97 %, O2=2 lpm 16:15:58 HR=78 bpm, AVXM=182/96 mmhg, SpO2=98.0 %, Resp=12 B/min, Pain=0, Yolanda=10, Geiger=2 16:21:01 HR=74 bpm, WWGQ=572/91 mmhg, SpO2=98.0 %, Resp=2 B/min, Pain=0, Yolanda=10, Geiger=2 16:24:47 Pressure held until hemostasis due to closure failure. 16:26:00 HR=76 bpm, ZYQU=750/92 mmhg, SpO2=97.0 %, Resp=0 B/min, Pain=0, Yolanda=10, Geiger=2 16:30:57 HR=73 bpm, ZIVE=700/101 mmhg, SpO2=97.0 %, Resp=0 B/min, Pain=0, Yolanda=10, Geiger=2 16:36:02 HR=73 bpm, FVFI=890/96 mmhg, SpO2=97.0 %, Resp=15 B/min, Pain=0, Yolanda=10, Geiger=2 16:40:12 Sterile dressing applied to site 16:40:59 HR=73 bpm, RFTB=516/97 mmhg, SpO2=99.0 %, Resp=17 B/min 16:45:58 HR=79 bpm, DQSX=860/97 mmhg, SpO2=98.0 %, Resp=19 B/min 16:46:13 Vitals capture stopped. Vitals capture started with the following parameters, Patient=Adult, Interval=3 min, Initial Pr ddrcay=910 mmHg, 16:46:28 Deflation Rate=5 mmHg, Cuff placed on Right Arm 16:47:06 HR=71 bpm, ZPAY=064/99 mmhg, SpO2=97.0 %, Resp=27 B/min 16:50:06 HR=68 bpm, CCEF=085/95 mmhg, SpO2=97.0 %, Resp=9 B/min 16:53:08 HR=72 bpm, TEQA=471/93 mmhg, SpO2=96.0 %, Resp=12 B/min, Pain=0, Yolanda=10, Geiger=2 16:56:13 HR=61 bpm, RJEX=692/81 mmhg, SpO2=96.0 %, Resp=7 B/min, Pain=0, Yolanda=10, Geiger=2 16:59:07 HR=57 bpm, AWMY=853/88 mmhg, SpO2=98.0 %, Resp=9 B/min 17:01:42 NIBP STAT measurement started. 17:02:00 Patient moved to stretcher End Study - Contrast Media Used In Study Contrast Total Opened (mL) Total Used (mL) Total Wasted (mL) Omnipaque 150 60 90 End Study - Maximum Contrast Load Max Contrast Load (mL) 685.7 End Study - Radiation Exposure Fluoro Time (minutes) 2.2 End Study - Patient Disposition Complications Transferred To Interventional Outcome No Outpatient Bed No attempt made
--- NOTE | 2017-01-15 18:35 | MA ---
cc: SACHIN WOOD DATE: 01/15/2017. PROCEDURE PERFORMED: 1. Left heart catheterization. 2. Selective right and left coronary angiography. 3. Left ventriculogram. INDICATIONS FOR THE PROCEDURE: Non-S-T elevation myocardial infarction. Chest pain. DESCRIPTION OF THE PROCEDURE IN DETAIL: Consent signed. The patient was brought into the cardiac superintendent geophysical laboratory in a fasting state. The groins were prepped and draped in the sterile fashion. Using 1% lidocaine for local anesthesia and a micropuncture kit, 5-Lithuanian sheath was inserted into the right common femoral artery. A right common femoral artery angiography was performed to confirm position of the sheath. Then selective right and left coronary angiography was performed via JR-4 and JL-4 diagnostic catheters. Angiography was taken in multiple views. The JR-4 diagnostic catheter was introduced to the ventricle over a wire. This was followed by pressure recordings, ventriculogram and pullback. The patient tolerated the procedure well without complications. Estimated blood loss less than 30 mL. Total contrast used was 60 mL. The right groin access site was closed with a Vascade closure device. RESULTS: 1. Left ventricle. The left ventricular pressure was 159/10 with an left ventricular end diastolic pressure of 11. The aortic pressure was 147/94 with a mean of 118. The left ventriculogram revealed a symmetrically bina ventricle with an estimated ejection fraction of 60%. ANGIOGRAPHY: 1. Right coronary artery - The right coronary artery is a dominant vessel. It is tortuous; however, has nonobstructive coronary artery disease. It is patent throughout as well as the A and the PLV branch. 2. Left main - The left main is patent with RAMON III flow and nonobstructive coronary artery disease. 3. Left anterior descending - The left anterior descending is a transapical vessel giving off four diagonal vessels which are all patent with nonobstructive coronary artery disease. The remainder of the left anterior descending is also patent and slightly tortuous with nonobstructive coronary artery disease. 4. Left circumflex artery - The left circumflex artery is small however patent. It has an LV groove segment and one OM vessel. The vessels are patent with RAMON III flow nonobstructive coronary artery disease. CONCLUSIONS: 1. Hypertensive heart disease. 2. Nonobstructive coronary artery disease. 3. Preserved left ventricular systolic function. RECOMMENDATIONS: The patient will go to [facility] for post cath care. She will need an aggressive medical management for primary prevention of coronary artery disease. Therapeutic lifestyle changes. Aggressive medical management of hypertension. MD RAKAN Javed/RUDDY /4:17 PM /6:20 PM TOM
[2017-01-15] MEDS: BUDESONIDE-FORMOTEROL 80/4.5 MCG INHALER INH SCH (22:12)
[2017-01-16] VITALS (23 sets, daily range): BP systolic 112–170; BP diastolic 62–105; PULSE 58–81; RESP 16–18; TEMP 97.4–99.4; O2SAT 96–98
[2017-01-16] MEDS: ACETAMINOPHEN 325 MG TAB PO PRN ×2 (01:34→21:35)
[2017-01-16] MEDS: SODIUM CHLOR 0.9% 1000 ML INJ 1,000 ML IV SCH ×2 (02:55→14:50)
[2017-01-16 08:20] LABS: HDL CHOLESTEROL 24.4 MG/DL (40.0-60.0)
--- NOTE | 2017-01-16 08:51 | HHI.PR ---
Subjective Remarks f/u; chest pain in no acute distress. denies chest pain or sob. has some headache. Objective Vitals Vital Signs Date Time Temp Pulse Resp B/P Pulse Ox O2 Delivery O2 Flow Rate FiO2 01/16/17 07:00 63 01/16/17 06:00 61 01/16/17 05:00 64 01/16/17 04:00 69 01/16/17 03:00 98.7 65 18 125/62 96 01/16/17 03:00 64 01/16/17 02:00 62 01/16/17 01:00 67 01/16/17 00:00 62 01/15/17 23:00 98.5 77 18 139/64 96 01/15/17 23:00 70 01/15/17 22:00 62 01/15/17 21:00 64 01/15/17 20:00 63 01/15/17 20:00 97.8 67 18 148/92 96 01/15/17 17:10 100 Room Air 01/15/17 14:00 63 17 200/102 97 Room Air 01/15/17 13:00 82 18 190/98 98 Room Air 01/15/17 12:00 80 17 200/95 99 Room Air 01/15/17 11:00 77 18 196/105 100 Room Air 01/15/17 10:01 14 01/15/17 10:00 75 17 187/107 100 Room Air 01/15/17 09:34 82 19 168/100 99 Room Air 01/15/17 09:29 100 Room Air 01/15/17 09:11 76 19 185/108 100 Room Air 01/15/17 08:51 75 16 194/102 01/15/17 08:48 98.4 78 18 189/112 99 I/O 01/15/17 01/15/17 01/15/17 01/16/17 01/16/17 01/16/17 07:00 15:00 23:00 07:00 15:00 23:00 Intake Total 480 ml Balance 480 ml Intake Oral 480 ml # Voids 1 Result Diagram: 01/15/1730 01/15/17 [address] Angiography 01/15/17 1028 Signed Impressions: Service Date/Time: December 12:45 - CONCLUSION: 1. No evidence of pulmonary embolism. 2. Cardiomegaly. 3. Tiny pericardial effusion. 4. Bilateral axillary lymphadenopathy which is nonspecific. 5. 15 mm low density lesion within the left lobe of the liver which is indeterminate. MRI of the abdomen with contrast may be helpful for further evaluation of this finding and could be performed as an outpatient if clinically indicated. Rasta Staley MD Chest X-Ray 01/15/1715 Signed Impressions: Service Date/Time: December 09:17 - CONCLUSION: No acute disease. Chacorta Patel MD Objective Remarks GENERAL: This is a well-nourished, well-developed patient, in no apparent distress. CARDIOVASCULAR: Regular rate and regular rhythm without murmurs, gallops, or rubs. RESPIRATORY: Clear to auscultation. Breath sounds equal bilaterally. No wheezes , rales, or rhonchi. GASTROINTESTINAL: Abdomen soft, non-tender, nondistended. Normal, active bowel sounds MUSCULOSKELETAL: Extremities without clubbing, cyanosis, or edema. NEURO: Alert & Oriented x4 to person, place, time, situation. Moves all ext x4 Procedures cardiac cath. Medications and IVs Current Medications Aspirin (Aspirin Chew) 162 mg ONCE ONCE PO Last administered on 01/15/17 09: 27; Start 01/15/17 at 09:15; Stop 01/15/17 at 09:17; Status DC Sodium Chloride (NS Flush) 2 ml UNSCH PRN IVF FLUSH AFTER USING IV ACCESS; Start 01/15/17 at 09:15 Nitroglycerin 0.4 mg 0.4 mg Q5M SL Last administered on 01/15/17 09:47; Start 01/15/17 at 09:15; Stop 01/15/17 at 09:26; Status DC Sodium Chloride 500 ml @ 500 mls/hr ONCE ONCE IV Last administered on 09:29; Start 01/15/17 at 09:15; Stop 01/15/17 at 10:14; Status DC Heparin Sodium/ Dextrose 250 ml @ 0 mls/hr TITRATE IV Last administered on 01/15 10:58; Start 01/15/17 at 10:45 Nitroglycerin/ Dextrose (Nitroglycerin-Dextrose Inj) 250 ml @ 0 mls/hr TITRATE IV Last administered on 01/15/17 10:57; Start 01/15/17 at 10:45 Iohexol (Omnipaque 350 Inj) 60 ml STK-MED ONCE IV Last administered on 12:48; Start 01/15/17 at 12:48; Stop 01/15/17 at 12:49; Status DC Albuterol Sulfate (Ventolin Hfa Inh) 2 puff Q4H PRN INH SHORTNESS OF BREATH; Start 01/15/17 at 15:15 Budesonide/ Formoterol Fumarate 2 puff 2 puff BID INH Last administered on 01/15 22:12; Start 01/15/17 at 21:00 Sodium Chloride 1,000 ml @ 84 mls/hr [id number] IV ; Start 01/15/17 at 15:00 Heparin Sodium/ Sodium Chloride (Heparin-NS/Pf Inj) 500 ml @ As Directed STK- MED ONCE .ROUTE Last administered on 01/15/17 15:26; Start 01/15/17 at 15:26; Stop 01/15/17 at 15:27; Status DC Midazolam HCl (Versed Inj) 2 mg STK-MED ONCE .ROUTE Last administered on 15:56; Start 01/15/17 at 15:26; Stop 01/15/17 at 15:27; Status DC Fentanyl Citrate (fentaNYL INJ) 100 mcg STK-MED ONCE .ROUTE Last administered on 01/15/17 15:59; Start 01/15/17 at 15:26; Stop 01/15/17 at 15:27; Status DC Labetalol HCl (Trandate Inj) 100 mg STK-MED ONCE .ROUTE Last administered on 15:57; Start 01/15/17 at 15:56; Stop 01/15/17 at 15:57; Status DC Midazolam HCl (Versed Inj) 2 mg STK-MED ONCE .ROUTE Last administered on 16:05; Start 01/15/17 at 16:02; Stop 01/15/17 at 16:03; Status DC Protamine Sulfate (Protamine Sulfate Inj) 50 mg STK-MED ONCE .ROUTE ; Start at 16:48; Stop 01/15/17 at 16:49; Status DC Fentanyl Citrate (fentaNYL INJ) 100 mcg STK-MED ONCE .ROUTE ; Start 01/15/17 at 16:51; Stop 01/15/17 at 16:52; Status DC Acetaminophen (Tylenol) 650 mg Q4H PRN PO castillo/fever Last administered on t 01:34; Start 01/16/17 at 01:30 Iohexol (OMNIPAQUE 350 INJ (Di[employer]or)) 50 ml STK-MED ONCE OTHER ; Start at 16:13; Stop 01/16/17 at 08:04; Status DC A/P Assessment and Plan - chest pain with elevated troponin. s/p cardiac cath with : 1. Hypertensive heart disease. 2. Nonobstructive coronary artery disease. 3. Preserved left ventricular systolic function. d/w the patient regarding the life style modifications including low-fat/low sodium diet, exercise . -hypertensive urgency; BP improved on on Nitro drip- will resume lisinopril/HCTZ with increased dose and taper off the Nitro drip- continue to monitor the BP closely. -dyslipidemia; start on statin -asthma with no exacerbation; resumed advair and albuterol -liver lesion- f/u as outpatient; d/w the patient. Discharge Planning possible dc home later this afternoon or tomorrow if BP stable- see med list. f/u; pcp. d/w the patient and Deirdre Collins MD Jan 16, 2017 08:51
[2017-01-16] MEDS ORDERED: LISI20TA3 PO (08:57)
[2017-01-16] MEDS ORDERED: ATOR10TA15 PO (08:57)
--- NOTE | 2017-01-16 08:57 | HHI.DCPOC ---
Discharge Care Plan Diagnosis: (1) Unstable angina Your Health Problems Are: Chest Pain Goals to Promote Your Health * To prevent worsening of your condition and complications * To maintain your health at the optimal level Directions to Meet Your Goals Take your medications as prescribed Follow your dietary instruction Follow activity as directed Keep your appointments as scheduled Take your immunizations and boosters as scheduled If your symptoms worsen call your PCP, if no PCP go to Urgent Care Center or Emergency Room Smoking is Dangerous to Your Health. Avoid second hand smoke Call the 24-hour hour crisis hotline for domestic abuse at Deirdre Vivar MD Jan 16, 2017 08:57
[2017-01-16] MEDS: BUDESONIDE-FORMOTEROL 80/4.5 MCG INHALER INH SCH ×2 (09:00→21:36)
[2017-01-16 09:24] LABS: ALT (GPT) 12 U/L (10-53); AST (GOT) 19 U/L (15-37)
[2017-01-16] MEDS: LISINOPRIL 20 MG TAB PO SCH (09:37)
[2017-01-16] MEDS: HYDROCHLOROTHIAZIDE 25 MG TAB PO SCH (09:37)
--- NOTE | 2017-01-16 14:52 | EKG ---
Date Performed: 01/15/2017 Time Performed: 13:34:01 PTAGE: 46 years EKG: Sinus rhythm POSSIBLE LEFT ATRIAL ENLARGEMENT POSSIBLE LEFT VENTRICULAR HYPERTROPHY NONSPECIFIC T-WAVE ABNORMALIT Y PROLONGED QT INTERVAL ABNORMAL ECG PREVIOUS TRACING 01/15/2017 09.13.48 Since previous tracing, no significant change noted DOCTOR: Nirmal Arechiga Interpretating Date/Time 01/16/2017 14:51:29
[2017-01-16] MEDS ORDERED: cloNIDine HCL 0.1 MG TAB PO ONE (21:15)
[2017-01-17] VITALS (13 sets, daily range): BP systolic 124–148; BP diastolic 77–98; PULSE 60–96; RESP 18; TEMP 98–98.5; O2SAT 96–100
[2017-01-17] MEDS: SODIUM CHLOR 0.9% 1000 ML INJ 1,000 ML IV SCH (02:45)
[2017-01-17] MEDS: LISINOPRIL 20 MG TAB PO SCH (08:02)
[2017-01-17] MEDS: HYDROCHLOROTHIAZIDE 25 MG TAB PO SCH (08:02)
[2017-01-17] MEDS: BUDESONIDE-FORMOTEROL 80/4.5 MCG INHALER INH SCH (08:02)
--- NOTE | 2017-01-17 10:46 | HHI.PR ---
Subjective Remarks Pt tells me that she feels well other than having a headache (states that she was told that it was from the nitroglycerine gtt), but states once she falls asleep the headache goes away. Denies any nausea or vomiting, denies any CP/ SOB. Pt eager to go home. She admits that she does use salt in her foods and doesn't measure it. She wasn't aware that it could affect her BPs Objective Vitals Vital Signs Date Time Temp Pulse Resp B/P Pulse Ox O2 Delivery O2 Flow Rate FiO2 01/17/17 08:01 98.0 71 18 147/98 96 01/17/17 07:01 65 01/17/17 05:00 61 01/17/17 04:00 62 01/17/17 03:00 65 01/17/17 03:00 98.5 69 18 124/77 97 01/17/17 02:00 60 01/17/17 01:00 66 01/17/17 00:00 76 01/16/17 23:00 98.5 76 18 133/75 97 01/16/17 23:00 72 01/16/17 22:00 74 01/16/17 21:00 80 01/16/17 20:00 99.4 75 18 170/105 98 01/16/17 20:00 72 01/16/17 19:00 72 01/16/17 18:00 68 01/16/17 17:00 78 01/16/17 16:00 72 01/16/17 15:00 97.4 64 18 159/93 01/16/17 15:00 74 01/16/17 14:00 72 01/16/17 13:00 58 01/16/17 12:35 70 01/16/17 11:00 76 01/16/17 11:00 97.5 81 16 159/80 97 I/O 01/16/17 01/16/17 01/16/17 01/17/17 01/17/17 01/17/17 07:00 15:00 23:00 07:00 15:00 23:00 Intake Total 480 ml 650 ml 480 ml Output Total 500 ml Balance 480 ml 650 ml -20 ml Intake Oral 480 ml 650 ml 480 ml Output Urine Total 500 ml # Voids 1 5 Result Diagram: 8/17/17 0930 8/17/17 [address] Angiography 01/15/17 1028 Signed Impressions: Service Date/Time: December 12:45 - CONCLUSION: 1. No evidence of pulmonary embolism. 2. Cardiomegaly. 3. Tiny pericardial effusion. 4. Bilateral axillary lymphadenopathy which is nonspecific. 5. 15 mm low density lesion within the left lobe of the liver which is indeterminate. MRI of the abdomen with contrast may be helpful for further evaluation of this finding and could be performed as an outpatient if clinically indicated. Rasta Staley MD Chest X-Ray 01/15/17 0915 Signed Impressions: Service Date/Time: December 09:17 - CONCLUSION: No acute disease. Chacorta Patel MD Objective Remarks GENERAL: This is a well-nourished, well-developed patient, laying in bed w daughter next to her EYES: EOMI CARDIOVASCULAR: Regular rate and regular rhythm without murmurs RESPIRATORY: Clear to auscultation. Breath sounds equal bilaterally. No wheezes GASTROINTESTINAL: Abdomen soft, non-tender, nondistended. MUSCULOSKELETAL: Extremities without edema. NEURO: Alert & Oriented. Moves all ext x4 PSYCH: pleasant Procedures cardiac cath. A/P Problem List: (1) Non-ST elevation [place] (NSTEMI) ICD Code: I21.4 Status: Acute Assessment and Plan - NSTEMI: chest pain with elevated troponin. s/p cardiac cath with : 1. Hypertensive heart disease. 2. Nonobstructive coronary artery disease. 3. Preserved left ventricular systolic function. I did counseled pt regarding the importance of adhering to a low sodium/low fat diet. Pt tells me that she rides her bike daily. She hadn't been monitoring her sodium intake and will do this from now on. daughter at bedside also was educated on this. -hypertensive emergency; s/p Nitro drip- Pt's lisinopril was adjusted to 20mg po BID and continue HCTZ 25 mg po daily. -dyslipidemia; on statin -asthma with no exacerbation; on advair and albuterol -liver lesion- Pt has been made aware and must f/u as outpatient d/w the patient and RN. Discharge Planning discharge pt home heart healthy low fat diet activity adlib see med list. f/u w pcp in 2-3 days for BP check and hospital f/u for liver lesion ( outpatient MRI). Lindy Pittman MD Jan 17, 2017 10:46
[2017-01-17] MEDS ORDERED: LISI-515 PO (10:47)
[2017-01-17] MEDS ORDERED: HYDR25TA5 PO (10:47)
[2017-01-17] MEDS ORDERED: LISINOPRIL 20 MG TAB PO SCH (21:00)
== END 2017-01-17 12:45 | disposition home or self-care (01) | DRG 281 ==
LOC: NEPD 08:45 → NEDA 13:47 → HCIS 19:31
PROVIDERS: ADMIT Hospitalist; ATTEND Hospitalist
PROC: B2111ZZ Fluoroscopy of Multiple Coronary Arteries using Low Osmolar Contrast (ICD-10-PCS; 2017-01-15)
PROC: B2151ZZ Fluoroscopy of Left Heart using Low Osmolar Contrast (ICD-10-PCS; 2017-01-15)
PROC: B41F1ZZ Fluoroscopy of Right Lower Extremity Arteries using Low Osmolar Contrast (ICD-10-PCS; 2017-01-15)
PROC: 4A023N7 Measurement of Cardiac Sampling and Pressure, Left Heart, Percutaneous Approach (ICD-10-PCS; principal; 2017-01-15 12:30)
DX: I21.4 Non-ST elevation (NSTEMI) myocardial infarction (principal); I16.1 Hypertensive emergency; I11.9 Hypertensive heart disease without heart failure; J45.909 Unspecified asthma, uncomplicated; K76.9 Liver disease, unspecified; I25.10 Atherosclerotic heart disease of native coronary artery without angina pectoris; E78.5 Hyperlipidemia, unspecified; G44.40 Drug-induced headache, not elsewhere classified, not intractable; T46.3X5A Adverse effect of coronary vasodilators, initial encounter; Y92.239 Unspecified place in hospital as the place of occurrence of the external cause
CPT/HCPCS: 71010; 71275; 76937; 80048; 80061; 82550; 82552; 83690; 83735; 83880; 84450; 84460; 84484; 84702; 85025; 85379; 85610; 85730; 93005; 93458; 96361; 96374; C1760; C1769; C1893; G0269; J1644; J2250; J2720; J3010; J7040; Q9967